=== PATIENT | male | born 1955 | race Native Hawaiian/Other Pacific Islander ===

== ENCOUNTER 2018-11-28 20:24 | Observation (INO) | payer BC ==
[~2018-11-28] VITALS: Ht 167.6 cm; Wt 106.1 kg
[2018-11-28] MEDS ORDERED: GLUCOTROL 5M5 MG/TAB PO (23:14)
[2018-11-28] MEDS ORDERED: ZYLOPRIM 100MG100 MG (23:15)
[2018-11-28] MEDS ORDERED: GLUCOPHAGE500 MG/TAB PO (23:15)
[2018-11-28] MEDS ORDERED: INDOCIN 25MG CA25 MG (23:16)
[2018-11-28] MEDS ORDERED: ASPIRIN 81M81 MG/TA2 PO (23:17)
[2018-11-28] MEDS ORDERED: LYRICA 25MG CAP25 MG PO (23:17)
[2018-11-28] MEDS ORDERED: BLOOD THINNER (23:18)
[2018-11-28] MEDS ORDERED: CHOLESTEROL (23:18)
--- NOTE | 2018-11-28 23:33 | NUR ---
Pt. arrived to the floor aroud 2215. Pt. able to ambulate independently to the bed. Pt. is A&OX3, assessment complete. INT to lt. hand. Pt. denies pain or other needs, call light within reach.
[2018-11-28] MEDS ORDERED: TENORMIN 5050 MG/TAB PO (23:39)
[2018-11-28] MEDS ORDERED: LIPITOR 80MG80 MG PO (23:40)
[2018-11-28] MEDS ORDERED: PLAVIX 75MG TAB75 MG PO (23:41)
[2018-11-28] MEDS ORDERED: ZESTRIL 10MG10 MG PO (23:42)
[2018-11-28] MEDS ORDERED: LOVENOX 100100 MG/ML SQ (23:42)
[2018-11-28] MEDS ORDERED: TYLENOL 500MG500 MG PO (23:47)
[2018-11-28] MEDS ORDERED: NITROSTAT0.4 MG/TAB SL (23:53)
[2018-11-29 00:34] VITALS: BP 159/91; PULSE 59; TEMP 98.4
[2018-11-29 03:48] VITALS: BP 153/89; PULSE 63; TEMP 99.9
[2018-11-29 06:59] LABS: HEMATOCRIT 48.5 % (42.0-52.0); HEMOGLOBIN 16.1 g/dl (13.5-18.0); MEAN CELL VOLUME 81 fl (80.0-100.0); MEAN CORPUSCULAR HEMOGLOBIN 27 pg (27.0-31.0); MEAN CORPUSCULAR HGB CONC 33 g/dl (33.0-37.0); MEAN PLATELET VOLUME 9.3 fl (7.4-10.4); PLATELET COUNT 252 K/mm3 (130-400); RED BLOOD COUNT 5.98 M/mm3 (4.20-5.60); REDCELL DISTRIBUTION WIDTH-CV 13.8 % (11.5-14.5)
[2018-11-29 07:08] LABS: PROTHROMBIN TIME 11.2 SECONDS (9.7-12.8)
[2018-11-29 07:08] LABS: CREATININE, serum 1.16 (0.66-1.25); POTASSIUM 4.1 mmol/L (3.4-5.0)
[2018-11-29 07:11] LABS: PARTIAL THROMBOPLASTIN TIME 40.4 SECONDS (26.0-37.0)
[2018-11-29 08:55] VITALS: BP 142/90; PULSE 69; TEMP 98.5
--- NOTE | 2018-11-29 09:39 | NUR ---
JASWANT met with the patient to discuss discharge plan. The patient lives in [place] with his cousin, Starla Light ([phone]). He reports independence with ADLs and has a cane. The patient's PCP is Dr. Luis Purvis and he receives his medications at the [facility] in [place]. He reports no difficulties obtaining his meds. The patient does not have advanced directives, but he was interested in obtaining a form for DPOA-[employer]. JASWANT provided The patient reports that if anything were to happen to him, he would want his cousin called. The patient plans to return home with his cousin upon discharge. No additional needs at this time.
--- NOTE | 2018-11-29 11:32 | NUR ---
Patient alert and oriented, answers questions appropriately. See assessment. Heart tones strong and even, pulses palpable. No c/o at this time.
[2018-11-29 12:10] VITALS: BP 149/92; PULSE 62; TEMP 98.6
--- NOTE | 2018-11-29 13:01 | NUR ---
First visit from the weatherization administrator. No needs right now.
[2018-11-29 16:55] VITALS: BP 140/80; PULSE 63; TEMP 98.1
[2018-11-29 20:25] VITALS: BP 144/89; PULSE 64; TEMP 99
[2018-11-29] MEDS ORDERED: ZYLOPRIM 100MG100 MG PO (20:33)
--- NOTE | 2018-11-29 21:30 | NUR ---
Pt. laying in bed resting. Pt. is A&OX3, assessment complete. IV to lt. hand patent, IV fluids infusing per orders. Pt. reported Gout pain to feet. Dr. garcia, new orders recieved for gout meds. Pt. denies other needs, call light within reach.
[2018-11-30] VITALS (17 sets, daily range): BP systolic 115–166; BP diastolic 74–96; PULSE 56–69; TEMP 97.8–98.9
--- NOTE | 2018-11-30 08:00 | NUR ---
PATIENT IS RESTING IN BED. PATIENT IS A&OX4. VSS. TELE IN PLACE. BOWEL SOUNDS ACTIVE ALL FOUR QUADRANTS. PATIENT DENIES COMPLAINTS OF N/V. PATIENT IS NPO FOR PROCEDURE. POSITIVE PEDAL PULSES EQUAL BILATERALLY. IV FLUIDS INFUSING TO LEFT HAND IV VIA PUMP. CALL LIGHT WITHIN REACH. PATIENT DENIES ANY OTHER NEEDS AT THIS TIME.
--- NOTE | 2018-11-30 10:30 | NUR ---
DR. HANSEN CALLED ABOUT MORNING MEDICATIONS. GIVEN THE OKAY TO GIVE ALL MORNING MEDICATIONS WITH A SIP OF WATER.
--- NOTE | 2018-11-30 10:41 | NUR ---
CALLED AND NOTIFIED THAT THERE IS NO SLIDING SCALE ORDERED FOR THE PATIENT'S BLOOD SUGAR CHECKS. LOW INSULIN SLIDING SCALE ORDERED TORB FROM DR. HANSEN TO THIS NURSE. NOTIFIED OF MORNING BLOOD SUGAR OF 178. PHYSICIAN IS OKAY TO NOT TREAT THE PATIENT PRE-OPERATIVELY WITH INSULIN UNLESS BLOOD SUGAR IS GREATER THAN 200.
--- NOTE | 2018-11-30 13:20 | NUR ---
PATIENT CONSENT FORM SIGNED FOR PROCEDURE THIS AFTERNOON. IV FLUIDS INFUSING TO LEFT FOREARM IV VIA GRAVITY FLOW TUBING. PATIENT SHOWERED WITH PRE-OP SCRUB. PATIENT RESTING IN BED AT THIS TIME.
--- NOTE | 2018-11-30 14:58 | NUR ---
PATIENT TAKEN TO ACCOUNTING ADMINISTRATIVE ASSISTANT VIA BED FOR PROCEDURE. WILL WAIT FOR ARRIVAL BACK TO ROOM 346.
--- NOTE | 2018-11-30 15:32 | NUR ---
SEE MERGE DOCUMENTATION FOR MEDICATION ADMINISTRATION TIMES AND INTRA/POST PROCEDURE SEDATION ASSESSMENTS. DIFFICULTY OBTAINING IV ACCESS; MD PLACING 4FR SHEATH TO RIGHT FEMORAL VEIN FOR IV ACCESS DURING CASE.
--- NOTE | 2018-11-30 16:15 | NUR ---
ALL IV MEDICATIONS DURING HEART CATH ADMINISTERED THROUGH 4FR SHEATH TO RIGHT FEMORAL VEIN PLACED BY .
--- NOTE | 2018-11-30 16:30 | NUR ---
Pt transferred to count includes the [facility] from veterinary laboratory diagnostician at this time. Telemetry in place; VS monitor connected by primary RNDejah. Bedside handoff occuring at this time. Right radial arterial access site observed with RN, LALI band in place with 12cc in band. No oozing/bleeding noted. No s/sx of reduced distal perfusion. Right groin venous access puncture also assessed with Primary RN. 4x4 dry and intact; site soft and without brusing or signs of hematoma. Per Dr Fong, pt to have flat bedrest x 1hr d/t venous groin puncture. Pt alert and oriented; VS's stable at this time.
--- NOTE | 2018-11-30 16:30 | NUR ---
PATIENT ARRIVED BACK TO ROOM 346 VIA BED FROM PACU. PATIENT IS A&O BUT DROWSY FROM SURGERY. POST-OP VSS. PATIENT IS LAYING FLAT AND ON BEDREST. RIGHT GROIN FEMORAL VEIN SITE FROM PROCEDURAL SHEATH IS CD&I WITH GAUZE AND TEGADERM DRESSING IN PLACE. RIGHT FEMORAL SITE IS SOFT TO PALPATION. 2 MLS OF AIR RELEASED FROM RIGHT RADIAL TR BAND. TR BAND DRESSING IS CD&I. POSITIVE PEDAL AND RADIAL PULSES BILATERALLY. PATIENT DENIES PAIN AT THIS TIME. CALL LIGHT WITHIN REACH. PATIENT DENIES ANY OTHER NEEDS AT THIS TIME.
--- NOTE | 2018-11-30 17:15 | NUR ---
PATIENT IS A&O BUT DROWSY FROM SURGERY. POST-OP VSS. PATIENT IS LAYING FLAT AND ON BEDREST. RIGHT GROIN FEMORAL VEIN SITE FROM PROCEDURAL SHEATH IS CD&I WITH GAUZE AND TEGADERM DRESSING IN PLACE. RIGHT FEMORAL SITE IS SOFT TO PALPATION. 2 MLS OF AIR RELEASED FROM RIGHT RADIAL TR BAND. TR BAND DRESSING IS CD&I. RIGHT RADIAL SITE IS SOFT UPON PALPATION. POSITIVE RADIAL PULSES BILATERALLY. PATIENT DENIES PAIN AT THIS TIME. CALL LIGHT WITHIN REACH. PATIENT DENIES ANY OTHER NEEDS AT THIS TIME.
--- NOTE | 2018-11-30 18:15 | NUR ---
SCANT AMOUNT OF BLOOD LEAKING AT RIGHT RADIAL SITE UNDERNEATH TR BAND. 2MLS OF AIR ADDED BACK INTO TR BAND. PATIENT SITTING UP EATING DINNER. NO OTHER NEEDS AT THIS TIME.
--- NOTE | 2018-11-30 19:15 | NUR ---
POST-OP VSS. PATIENT IS ON BEDREST AND SITTING AT A 40 DEGREE ANGLE. PATIENT TOLERATED DINNER WITHOUT COMPLAINTS OF N/V. RIGHT GROIN FEMORAL VEIN SITE FROM PROCEDURAL SHEATH IS CD&I WITH GAUZE AND TEGADERM DRESSING IN PLACE. RIGHT FEMORAL SITE IS SOFT TO PALPATION. 2 MLS OF AIR RELEASED FROM RIGHT RADIAL TR BAND. TR BAND DRESSING HAS A SCANT AMOUNT OF DRAINAGE FROM PRIOR LEAKING, NO ADDITIONAL DRAINAGE FROM RADIAL SITE. POSITIVE RADIAL PULSES EQUAL BILATERALLY. CALL LIGHT WITHIN REACH. PATIENT DENIES ANY OTHER NEEDS AT THIS TIME.
--- NOTE | 2018-11-30 19:30 | NUR ---
REPORT GIVEN TO BRE GUTHRIE.
--- NOTE | 2018-11-30 20:15 | NUR ---
Patient report received from BRE Pond during shift change. Upon assessment patient is resting comfortably in bed, asleep, but arouses easily. Denies pain or n/v. Post-op vitals underway, stable. TR band to Right Radial wrist, per report there is 8 ml of air left in the band. Occulsive dressing CDI to right groin. INT to left FA. No needs reported/observed.
--- NOTE | 2018-12-01 | NUR ---
TR band deflated fully, site assessed for bleeding. No bleeding present, band removed and bandaid placed.
[2018-12-01 01:59] VITALS: BP 148/96; PULSE 59; TEMP 97.9
[2018-12-01 05:00] VITALS: BP 141/85; PULSE 55; TEMP 98.1
[2018-12-01 08:49] VITALS: BP 143/89; PULSE 75; TEMP 97.5
--- NOTE | 2018-12-01 13:37 | NUR ---
Discharge orders discussed with patient, instructed to follow up with Cardiology in [place] as we have scheduled for him, instructed him to HOLD his plavix/ lovenox, may continue all other home meds, instructed to take it easy untill he follows up in [place]/ do not over exert as his CAD is extensive, CD made of his ECHO and C/ insturcted to take with him to [place] [facility] appointment, IV and tele removed, he is leaving with friend/family member, I personally escorted him out the door by wheelchair
== END 2018-12-01 13:40 | disposition home or self-care (01) ==
LOC: SURG 20:24
PROVIDERS: ADMIT Internal Medicine Interventional Cardiology
DX: I25.10 Atherosclerotic heart disease of native coronary artery without angina pectoris (principal); I10 Essential (primary) hypertension; E78.5 Hyperlipidemia, unspecified; E11.9 Type 2 diabetes mellitus without complications; E66.9 Obesity, unspecified; G47.33 Obstructive sleep apnea (adult) (pediatric); Z79.82 Long term (current) use of aspirin; Z79.84 Long term (current) use of oral hypoglycemic drugs; Z79.02 Long term (current) use of antithrombotics/antiplatelets; Z87.891 Personal history of nicotine dependence
CPT/HCPCS: C1894; G0378; G0379; J1644; J1815; J2250; J3010; J7030; Q9967